=== PATIENT | female | born 1975 | race Caucasian/White ===

== ENCOUNTER 2018-05-18 11:26 | Inpatient (IN) ==
[2018-05-18] MEDS ORDERED: Oxytocin 30 Units/500ml Premix 30 UNITS/500 ML BAG IV.SIG ONE ×2 (12:10→14:29)
--- NOTE | 2018-05-18 12:10 | ED ---
History of Present Illness Primary Care Physician: Vandana Nunez Chief Complaint: c/o breaking her water @ 9:30 am History of Present Illness: This is a 43-year-old at 36+ weeks presents complaining spontaneous rupture of membranes clear fluid her GBS status is unknown. care with Dr. Nunez she is scheduled for a delivery secondary to breech presentation on the of this month. care is uneventful however she has had recurrent loss currently has not been on baby aspirin. Weeks Gestation:: 36 Para: 0 : 4 Review of Systems All other systems reviewed negative except as stated in HPI Medications and Allergies Allergies Allergy/AdvReac Type Severity Reaction Status Date / Time No Known Allergies Allergy Verified 05/16/18 18:51 Home Medications Medication Instructions Recorded Confirmed Type vit,[id number] 1 tab PO DAILY 05/16/18 05/16/18 History [PNV 29-1] Exam Narrative: GENERAL: Well-nourished, well-developed patient. SKIN: Warm and dry. HEAD: Normocephalic and atraumatic. EYES: No scleral icterus. No injection or drainage. ENT: No nasal drainage noted. Mucous membranes pink. Airway patent. NECK: Supple, trachea midline. No JVD. CARDIOVASCULAR: Regular rate and rhythm without murmurs, gallops, or rubs. RESPIRATORY: Breath sounds equal bilaterally. No accessory muscle use. BREASTS: Bilateral exam showed no masses , no retractions, no nipple discharge. ABDOMEN/GI: Abdomen soft, non-tender, bowel sounds present, no rebound, no guarding Gravid to 37 weeks size Fundal Height: 37 GENITOURINARY: External Genitalia: intact and normal in appearance BUS glands: Unremarkable Cervix: Moderate Dilatation: Fingertip Effacement: 80 Station: -2 Presentation: Breech by ultrasound Membranes: Ruptured Uterine Contractions: Present FHT's: Category: 1 EXTREMITIES: No cyanosis or edema. BACK: Nontender without obvious deformity. No CVA tenderness. NEUROLOGICAL: Awake and alert. Motor and sensory grossly within normal limits. Normal speech. Assessment and Plan - Diagnosis (1) Breech presentation on examination Code(s): O32.1XX0 - Maternal care for breech presentation, not applicable or unspecified Status: Acute (2) Leakage of amniotic fluid Code(s): O42.90 - Premature rupture of membranes, unspecified as to length of time between rupture and onset of labor, unspecified weeks of gestation Status : Acute (3) Advanced maternal age (AMA), 40 years or greater Status: Acute (4) 36 weeks gestation of Code(s): Z3A.36 - 36 weeks gestation of Status: Acute - Plan Admit Discharge Plan - Discharge Disposition Patient Disposition: 30 Still Patient - Discharge Condition Condition: Good - Physicians Team ED Provider: Joanna Marlow Primary Care Provider: Primary Care Sherrie Wright - Rxs /Orders / Referrals /Forms Prescriptions: No Action vit,[id number] [PNV 29-1] 29 mg iron- 1 mg Tablet 1 tab PO DAILY - Discharge Instructions Print Language: [place]ayan
[2018-05-18] MEDS ORDERED: Citric Acid/Sodium Citrate Liq 30 ML UDC PO SCH (12:15)
--- NOTE | 2018-05-18 12:24 | P.HPOB ---
Admission H+P: Patient Name: Tania Platt Date of : 77 Patient Status: Inpatient Attending Provider: Heidi Nunez Date: 05/18/18 11:57 Initialization Date: 05/18/18 11:57 History of Present Illness Primary Care Physician: Vandana Nunez Chief Complaint: c/o breaking her water @ 9:30 am History of Present Illness: This is a 43-year-old at 36+ weeks presents complaining spontaneous rupture of membranes clear fluid her GBS status is unknown. care with Dr. Nunez she is scheduled for a delivery secondary to breech presentation on the of this month. care is uneventful however she has had recurrent loss currently has not been on baby aspirin. Weeks Gestation:: 36 Para: 0 : 4 Review of Systems All other systems reviewed negative except as stated in HPI Medications and Allergies Allergies Allergy/AdvReac Type Severity Reaction Status Date / Time No Known Allergies Allergy Verified 05/16/18 18:51 Home Medications Medication Instructions Recorded Confirmed Type vit,[id number] 1 tab PO DAILY 05/16/18 05/16/18 History [PNV 29-1] Exam Narrative: GENERAL: Well-nourished, well-developed patient. SKIN: Warm and dry. HEAD: Normocephalic and atraumatic. EYES: No scleral icterus. No injection or drainage. ENT: No nasal drainage noted. Mucous membranes pink. Airway patent. NECK: Supple, trachea midline. No JVD. CARDIOVASCULAR: Regular rate and rhythm without murmurs, gallops, or rubs. RESPIRATORY: Breath sounds equal bilaterally. No accessory muscle use. BREASTS: Bilateral exam showed no masses , no retractions, no nipple discharge. ABDOMEN/GI: Abdomen soft, non-tender, bowel sounds present, no rebound, no guarding Gravid to 37 weeks size Fundal Height: 37 GENITOURINARY: External Genitalia: intact and normal in appearance BUS glands: Unremarkable Cervix: Moderate Dilatation: Fingertip Effacement: 80 Station: -2 Presentation: Breech by ultrasound Membranes: Ruptured Uterine Contractions: Present FHT's: Category: 1 EXTREMITIES: No cyanosis or edema. BACK: Nontender without obvious deformity. No CVA tenderness. NEUROLOGICAL: Awake and alert. Motor and sensory grossly within normal limits. Normal speech. Assessment and Plan - Diagnosis (1) Breech presentation on examination Code(s): O32.1XX0 - Maternal care for breech presentation, not applicable or unspecified Status: Acute (2) Leakage of amniotic fluid Code(s): O42.90 - Premature rupture of membranes, unspecified as to length of time between rupture and onset of labor, unspecified weeks of gestation Status : Acute (3) Advanced maternal age (AMA), 40 years or greater Status: Acute (4) 36 weeks gestation of Code(s): Z3A.36 - 36 weeks gestation of Status: Acute - Plan Admit Discharge Plan - Discharge Disposition Patient Disposition: 30 Still Patient - Discharge Condition Condition: Good - Physicians Team ED Provider: Joanna Marlow Primary Care Provider: Primary Care Sherrie Wright - Rxs /Orders / Referrals /Forms Prescriptions: No Action vit,[id number] [PNV 29-1] 29 mg iron- 1 mg Tablet 1 tab PO DAILY - Discharge Instructions Print Language: Slovak
[2018-05-18 12:56] LABS: Baso % (Auto) 0.2 % (0.0-2.0); Eos % (Auto) 0.3 % (0.0-4.0); Hematocrit 35.9 % (35.0-46.0); Hemoglobin 12.3 gm/dL (11.6-15.3); Lymph # (Auto) 1.6 th/mm3 (1.0-4.8); Lymph % (Auto) 11.3 % (9.0-44.0); Mean Corpuscular HGB Conc 34.2 % (32.0-36.0); Mean Corpuscular Hemoglobin 30.5 pg (27.0-34.0); Mean Corpuscular Volume 89.3 fL (80.0-100.0); Mean Platelet Volume 9.7 fL (7.0-11.0); Mono # (Auto) 0.8 th/mm3 (0.0-0.9); Mono % (Auto) 5.6 % (0.0-8.0); Neut # (Auto) 11.5 th/mm3 (1.8-7.7); Neut % (Auto) 82.6 % (16.0-70.0); Platelet Count 287 th/mm3 (150-450); Red Blood Count 4.02 mil/mm3 (4.00-5.30); Red Cell Distribution Width 14.4 % (11.6-17.2); White Blood Count 13.9 th/mm3 (4.0-11.0)
[2018-05-18] MEDS ORDERED: ceFAZolin 2 GM Premix Inj 2 GM/50 ML PIGGYBACK IV.SIG ONE (12:57)
[2018-05-18 13:17] LABS: Bilirubin,Urine Negative (Negative); Clarity,Urine Clear (Clear); Color,Urine Yellow (Yellw/Straw); Glucose,Urine (UA) Negative (Negative); Leukocyte Esterase,Urine Negative (Negative); Mucus,Urine Few /lpf (Occasional); Nitrite,Urine Negative (Negative); Specific Gravity,Urine 1.012 (1.002-1.035); Squamous Epithelial Cell,Urine 1 /hpf (0-5)
[2018-05-18 13:25] LABS: Amphetamine Screen,Urine Neg (Neg); Barbiturate Screen,Urine Neg (Neg); Cannabinoid Screen,Urine Neg (Neg); Cocaine Screen,Urine Neg (Neg)
[2018-05-18 13:29] LABS: Opiate Screen,Urine Neg (Neg)
[2018-05-18] MEDS ORDERED: Morphine Sulfate PF Inj 5 MG/10 ML Ampul ONE (14:06)
[2018-05-18] MEDS ORDERED: Phenylephrine/NS 1000 MCG/10ML Syringe IV.PUSH ONE (14:24)
[2018-05-18] MEDS ORDERED: Ketorolac Inj 30 MG/ML (IVP) Vial IV.PUSH ONE (14:24)
--- NOTE | 2018-05-18 16:52 | MP ---
cc: Heidi Kenyon MD DATE OF OPERATION: 05/18/2018 PREOPERATIVE DIAGNOSES: Intrauterine at 36 weeks and 1 day gestation with breech presentation with spontaneous rupture of membranes. POSTOPERATIVE DIAGNOSES: Intrauterine at 36 weeks and 1 day gestation with breech presentation with spontaneous rupture of membranes. PROCEDURE PERFORMED: Primary low transverse section. SURGEON: Heidi Nguyen. ANESTHESIA: Spinal. FINDINGS: In surgery Included a viable male, 6 pounds 11 ounces with Apgars 8 and 9. Normal appearing tubes and ovaries bilaterally. BLOOD LOSS: 800 mL COMPLICATIONS: None. PROCEDURE IN DETAIL: After proper consents were obtained, blood have been typed and screened, the patient was taken to the operating room where a spinal anesthetic was placed. She was then placed in the dorsal position, sterilely prepped and draped and a Rincon catheter was placed. At this time, using a sharp knife, a Pfannenstiel skin incision was made. This was carried down to the fascia using the Bovie cautery. The fascia was nicked in the midline and extended superolaterally on each side. There was blunt dissection of the muscles off of the fascia. We then identified the peritoneum, entered it sharply with the Metzenbaum scissors, extended it superiorly and inferiorly paying close attention to the bladder. The bladder blade was placed. Bladder flap was developed. I made a transverse incision in the lower uterine segment. We extended that using the finger fracture technique. We then delivered the jake breech, delivering the buttocks out of the incision, followed by the right leg, then the left leg rotated the body to the dorsal side up. We then delivered down to the level of the mid scapula. We swept the right hand across the face and chest, followed by the left hand. We then delivered the vertex easily. There was a nuchal cord x1, which was reduced. Bulb suction to the oropharynx and the nares. Delayed cord clamping for 45 seconds and the cord was clamped, cut in between and the was handed to the team in attendance, a viable male, 6 pounds 11 ounces with Apgars 8 and 9, at this time. Cord blood sample was obtained. Placenta was removed. Uterus was exteriorized, wiped clean of clots and debris. The uterine incision was closed with a #1 chromic suture, starting at each apex meeting in the midline in a running interlocking fashion. Excellent hemostasis noted. Irrigation performed of the abdominopelvic cavity. Hemostasis was assured, we reapproximated the muscles using a #1 chromic suture x1 and then closed the fascia starting at each apex meeting in the midline in a running fashion. Irrigation was performed of the subcutaneous, hemostasis was achieved by Bovie cautery. All counts were correct and the patient was stable to the recovery room. Heidi Kenyon MD CCD/ct , 03:28 PM , 03:35 PM
[2018-05-18] MEDS ORDERED: Naloxone Inj 0.4 MG/ML Vial IV.PUSH PRN (17:06)
[2018-05-18] MEDS ORDERED: Oxytocin 30 Units/500ml Premix 30 UNITS/500 ML BAG IV.SIG PRN ×2 (17:10→19:29)
[2018-05-19 05:59] LABS: Baso % (Auto) 0.2 % (0.0-2.0); Eos % (Auto) 0.1 % (0.0-4.0); Hematocrit 28.6 % (35.0-46.0); Hemoglobin 9.8 gm/dL (11.6-15.3); Lymph # (Auto) 1.3 th/mm3 (1.0-4.8); Lymph % (Auto) 10.8 % (9.0-44.0); Mean Corpuscular HGB Conc 34.3 % (32.0-36.0); Mean Corpuscular Hemoglobin 30.6 pg (27.0-34.0); Mean Corpuscular Volume 89.3 fL (80.0-100.0); Mean Platelet Volume 9.4 fL (7.0-11.0); Mono # (Auto) 0.4 th/mm3 (0.0-0.9); Mono % (Auto) 3.4 % (0.0-8.0); Neut # (Auto) 10.4 th/mm3 (1.8-7.7); Neut % (Auto) 85.5 % (16.0-70.0); Platelet Count 241 th/mm3 (150-450); Red Cell Distribution Width 14.2 % (11.6-17.2); White Blood Count 12.2 th/mm3 (4.0-11.0)
--- NOTE | 2018-05-19 08:13 | P.PNOB ---
Subjective Post op day: 1 Interval history: Pt doing well, good pain control, breast feeding slightly a struggle now Objective Vital Signs/I&O: Vital Signs 05/18/18 11:58 05/18/18 14:11 05/18/18 15:20 Temperature 98.1 F 97.6 F Pulse Rate 87 98 H Respiratory Rate 18 27 H Blood Pressure 120/67 96/51 L 05/18/18 15:25 05/18/18 15:40 05/18/18 15:55 Temperature Pulse Rate 95 H 81 78 Respiratory Rate 20 20 Blood Pressure 101/54 L 91/50 L 96/56 L 05/18/18 16:10 05/18/18 16:25 05/18/18 16:40 Temperature 97.7 F Pulse Rate 78 76 76 Respiratory Rate 20 16 20 Blood Pressure 106/50 L 91/53 L 98/58 L 05/18/18 20:20 05/19/18 00:19 05/19/18 04:20 Temperature 97.9 F 98.5 F 98.3 F Pulse Rate 88 83 86 Respiratory Rate 18 18 18 Blood Pressure 100/66 96/56 L 92/53 L Intake & Output 05/18/18 05/19/18 05/19/18 18:59 06:59 18:59 Weight 78.925 kg Result Diagrams: 05/19/18 05:03 Objective Remarks: GENERAL: Well-nourished, well-developed patient. CARDIOVASCULAR: Regular rate and rhythm without murmurs, gallops, or rubs. RESPIRATORY: Breath sounds equal bilaterally. No accessory muscle use. ABDOMEN/GI: Abdomen soft, non-tender, bowel sounds present. Incision: Clean, dry and intact. Fundus: Firm, non-tender at umbilicus. GENITOURINARY: Light to moderate bleeding. EXTREMITIES: No cyanosis or edema, non-tender, without signs of DVT. Medications and IVs: Active Medications Citric Acid/Sodium Citrate (Sodium Citrate/Citric Acid Liq) 30 ml PO [facility] Stop: 05/22/18 12:14 Last Admin: 05/18/18 14:13 Dose: 30 ml Diphenhydramine HCl (Benadryl) 50 mg PO Q6H PRN PRN Reason: MILD TO MODERATE ITCHING Stop: 05/19/18 17:05 Diphenhydramine HCl (Benadryl Inj) 25 mg IV.PUSH Q6H PRN PRN Reason: MILD TO MODERATE ITCHING Stop: 05/19/18 17:05 Diphtheria/Pertussis/Tetanus Vacc (Boostrix Vaccine Inj) 0.5 ml IM .ONCE ONE Stop: 05/19/18 16:01 Lactated Ringer's (Lr 1000 Ml Inj) 1,000 mls @ 100 mls/hr IV.CONT .Q10H [facility] Stop: 05/19/18 13:09 Last Admin: 05/18/18 22:09 Dose: 100 mls/hr Oxytocin (Pitocin 30 Units/Ns 500 Ml Premix) 30 units in 500 mls @ 100 mls/hr IV.SIG UNSCH PRN PRN Reason: Heavy bleeding Ibuprofen (Motrin) 800 mg PO Q8H PRN PRN Reason: cramping Last Admin: 05/19/18 05:58 Dose: 800 mg Ketorolac Tromethamine (Toradol Inj) 30 mg IM Q6H PRN PRN Reason: SEE LABEL COMMENTS Measles/Mumps/Rubella Vaccine Live (M-M-R Ii Vaccine Inj) 0.5 ml SQ .ONCE ONE Stop: 05/19/18 16:01 Miscellaneous Information ([facility]) 1 each OTHER UNSCH PRN PRN Reason: SEE LABEL COMMENTS Stop: 05/19/18 17:05 Miscellaneous Information ([facility]) 1 each OTHER UNSCH PRN PRN Reason: SEE LABEL COMMENTS Stop: 05/19/18 17:05 Naloxone HCl (Narcan Inj) 0.4 mg IV.PUSH UNSCH PRN PRN Reason: SEE LABEL COMMENTS Stop: 05/19/18 17:05 Oxycodone/Acetaminophen (Percocet 5/325 Mg) 1 tab PO Q4H PRN PRN Reason: PAIN SCALE 3 TO 5 Oxycodone/Acetaminophen (Percocet 5/325 Mg) 2 tab PO Q4H PRN PRN Reason: PAIN SCALE 6 TO 10 Sodium Chloride (Ns Flush) 2 ml IV.FLUSH BID [facility] Last Admin: 05/18/18 22:16 Dose: Not Given Sodium Chloride (Ns Flush) 2 ml IV.FLUSH PRN PRN PRN Reason: FLUSH AFTER USING IV ACCESS Assessment and Plan - Plan POd # 1 s/p c/s due to breech doing well, routine care
[2018-05-19] MEDS ORDERED: Measles/Mumps/Rubella Vaccine Inj 0.5 ML Vial SQ ONE (16:00)
[2018-05-19] MEDS ORDERED: Diphtheria/Tetanus/Pertussis Vaccine Inj 0.5 ML Syringe IM ONE (16:00)
--- NOTE | 2018-05-20 08:17 | P.DS ---
Date of admission: 05/18/18 11:41 Primary care physician: Sherrie Primary Care Physician Brief History from admission: 43 yo breech and SROM for CS by Mayra DS: Diagnosis - Discharge Diagnosis (1) delivery delivered Status: Acute DS: Medications - Discharge Medications Prescriptions: acetaminophen-codeine [Tylenol-Codeine #3] 1 tab PO Q4-6H PRN 3 Days #20 tab PRN Reason: Abdominal Discomfort oxycodone-acetaminophen 1 tab PO Q4H PRN 3 Days #18 tab PRN Reason: Pain Scale 3 To 5 DS: Summary Hospital Course: Pt came and Had CS for DC home - Time Spent with Patient Total time spent providing and/or coordinating discharge services: Less than 30 minutes Exam Vital signs: Vital Signs 05/19/18 08:20 05/19/18 20:00 05/20/18 05:10 Temperature 98.2 F 97.8 F Pulse Rate 88 64 68 Respiratory Rate 20 18 16 Blood Pressure 90/54 L 92/51 L - Constitutional no acute distress - Routine Respiratory Exam Present: CTA bilaterally - Routine Cardiovascular Exam Present: RRR - Routine Abdominal Exam Present: soft, normoactive bowel sounds Results Procedures completed during hospitalization: section Discharge Plan - Discharge Disposition Patient Disposition: 01 Discharge Home - Discharge Condition Condition: Good - Discharge Details Discharge Comment: tylenol #3 RX shredded. Replaced with percocet RX - Physicians Team Primary Care Provider: Primary Care Sherrie Wright Attending Provider: Heidi Nunez
[2018-05-20] MEDS: Senna/Docusate Sodium 8.6/50 MG Tablet PO SCH ×2 (09:28→23:59)
[2018-05-21] MEDS: Senna/Docusate Sodium 8.6/50 MG Tablet PO SCH (08:50)
== END 2018-05-21 12:08 | disposition home or self-care (01) ==
LOC: HOBED 11:26 → H2E 11:41 → H1EA 14:20
PROVIDERS: ADMIT Obstetrics & Gynecology; ATTEND Obstetrics & Gynecology